=== PATIENT | male | born 1950 | race Caucasian/White ===

== ENCOUNTER 2016-10-17 06:58 | Day surgery (SDC) | payer MEDICARE, OTHER ==
[~2016-10-17 06:58] MED LIST: HUMALOG KW200 UNIT/1 SC; LANTUS100 UNITS/ SC; LIPITOR10 M1 PO
== END 2016-10-17 12:45 ==
LOC: SRG 06:58 → SHSB 06:59 → ORE 09:35 → PACU 09:51 → SHSB 10:30
PROC: 0CBM8ZX Excision of Pharynx, Via Natural or Artificial Opening Endoscopic, Diagnostic (ICD-10-PCS; principal; 2016-10-17)
DX: C01 Malignant neoplasm of base of tongue (principal); E78.5 Hyperlipidemia, unspecified; E11.9 Type 2 diabetes mellitus without complications; Z79.4 Long term (current) use of insulin; Z79.899 Other long term (current) drug therapy; Z87.891 Personal history of nicotine dependence; Z98.890 Other specified postprocedural states